=== PATIENT | female | born 1940 | race Caucasian/White ===

== ENCOUNTER → 2020-11-03 12:11 | Outpatient (CLI) | payer MEDICARE, SELFPAY ==
--- NOTE | 2020-11-03 12:17 | DI.MRI.S_ITS ---
BREAST MRI OF BOTH BREASTS: 11/03/2020 CLINICAL: Breast cancer. TECHNIQUE: The patient was placed prone in a dedicated breast imaging coil. Precontrast axial STIR and 3D FLASH without fat saturation sequences were obtained. Both before and after bolus injection of contrast, sequential 1-minute axial 3D FLASH with fat saturation sequences for 3 time points, with subtraction images and maximum intensity projections (MIP's) generated. Delayed sagittal FLASH images with fat saturation were also obtained. Computer-aided detection, including computer algorithm analysis of MRI image data for lesion detection and characterization, pharmacokinetic analysis, with further physician review for interpretation, was performed. COMPARISON: [facility], , MRI BREAST BILATERAL W / WO CONTRAST, 05/14/2019, 8:39. [facility], , MM TOMOSYNTHESIS SCREENING RT, 08/25/2020, 9:09. [facility], MM TOMOSYNTHESIS DIAGNOSTIC RT, 09/16/2020, 12:47. [facility] , US RIGHT BREAST, 09/16/2020, 13:19. [facility] , US BREAST RT CORE BIOPSY, 09/29/2020, 13:05. FINDINGS: Image quality: Excellent. There is minimal background parenchymal enhancement. Right breast: There is a 0.5 cm arterially enhancing mass at the 11:30 to 12:00 o'clock position in the right breast approximately 5 cm deep to the nipple, anterior aspect. There is susceptibility artifact from a biopsy clip along the posterior margin. There are no other areas of significant enhancement in the right breast. Right axillary lymph nodes demonstrated benign morphology. No internal mammary chain adenopathy. Left breast: The left breast is surgically absent. There is no suspicious chest wall or axillary enhancement. Miscellaneous: The visible portions of the liver, heart, and chest wall are normal without mass or enhancement. IMPRESSION: KNOWN BIOPSY PROVEN MALIGNANCY IMPRESSION: 1. Small enhancing mass centrally in the anterior right breast corresponds to biopsy proven malignancy. This was not seen on the prior MRI. 2. No other areas of disease seen in the right breast. 3. Post left mastectomy without evidence of residual or recurrent disease at the chest wall or axilla. BIRADS six, known malignancy COMMENT: The imaging literature indicates that a negative contrast breast MRI examination has a high sensitivity and a moderate specificity for detecting and excluding invasive carcinomas to a detection threshold of 3-5 mm; nonetheless, appropriate clinical and mammographic follow-up are recommended. MRI is not sensitive for detecting DCIS (ductal carcinoma in situ) and may not detect large invasive neoplasms that show only minimal enhancement such as mucinous carcinoma. If there are suspicious calcifications or clinically worrisome palpable masses, then biopsy should still be considered. Invasive neoplasms can be hidden by co-existent and benign enhancement caused by mastitis, hormone therapy effects, radiation therapy, , and recent biopsy or surgery. False positive examinations can occur in a number of circumstances, including breasts that have recently been subject to invasive procedures and those that contain atypical ductal hyperplasia, hormonally stimulated glandular tissue, fat necrosis, or radial scars. This exam was interpreted at Station ID: [id number]. Electronically Signed By: Kimberley cardenas/:11/03/2020 15:10:04 ACR BI-RADS Category 6: Known biopsy proven malignancy [id number]
== END ==
PROVIDERS: Family Provider Internal Medicine; PCP Internal Medicine; Referring Provider Surgery; Visit Provider Surgery
DX: C50.411 Malignant neoplasm of upper-outer quadrant of right female breast (principal); Z90.12 Acquired absence of left breast and nipple
CPT/HCPCS: 77049; A9579